=== PATIENT | female | born 1945 | race Caucasian/White ===

== ENCOUNTER → 2016-12-31 | Outpatient (CLI) | payer MEDICARE ==
--- NOTE | 2016-12-31 17:17 | BD ---
EXAMINATION TYPE: MG DEXA axial skeleton. DATE OF EXAM: 12/31/2016 COMPARISON: 2014 CLINICAL HISTORY: post menopausal Height: 5'2 Weight: 151 FRAX RISK QUESTIONS: Alcohol (3 or more units per day): no Family History (Parent hip fracture): no Glucocorticoids (More than 3mos): no (Ex: prednisone, prednisolone, methylprednisolone, dexamethasone, and hydrocortisone). History of Fracture in Adulthood: yes Secondary Osteoporosis: 1. Type 1 Diabetes: no 2. Hyperthyroidism: no 3. Menopause before 45: no 4. Malnutrition: no 5. Chronic liver disease: no Rheumatoid Arthritis: no Current Tobacco Use: no RISK FACTORS HISTORY OF: History of Wrist Fracture: rt When: age 66 Other Fractures since Age 52: When: age 66 Family History of Osteoporosis: Postmenopausal woman: MEDICATIONS: Additional Medications: blood pressure, vitamin d cholesterol, Additional History: EXAM MEASUREMENTS: Bone mineral densitometry was performed using the [employer]. Bone mineral density as measured about the Lumbar spine is: ----- L1-L4(G/cm2): 1.075 T Score Values are as follows: ----- L2: -0.4 ----- L3: -0.1 ----- L4: -1.7 ----- L1-L4: -0.9 Bone mineral density has: Increased 2.4% since study of: 01/25/2015 Bone mineral density about the R hip (g/cm2): 0.836 Bone mineral density about the L hip (g/cm2): 0.815 T Score values are as follows: -----R Neck: -1.5 -----L Neck: -1.6 -----R Total: -0.9 -----L Total: -0.9 Bone mineral density has: Increased 3.8% since study of: 01/25/2015 IMPRESSION: Osteopenia (T Score between -2.5 and -1 as noted by T score values:L4, sukhwinder hips There is slightly increased risk of fracture and the patient may be considered for treatment. Re-Screen 2-5 years. Bone density has improved 3.8% from 2015 within the bilateral hips. Bone density has improved 2.4% fr om 2015 within the lumbar spine. NOTE: T-SCORE=SD OF THE YOUNG ADULT MEAN.
--- NOTE | 2017-01-01 07:27 | WWHP ---
DATE OF SERVICE: 12/31/2016 CHIEF COMPLAINT: The patient is here for her routine gynecologic exam and mammogram. HPI: This is a 71-year-old, G3, P1-0-2-1 with an LMP of 1993. She is status post LEON/BSO in 1993 for endometriosis. The patient is without gynecologic complaints. PAST MEDICAL HISTORY: Chronic hypertension, seasonal allergies and osteopenia. MEDICATIONS: 1. Quinapril 20 mg daily. 2. Amlodipine 5 mg daily. 3. Citalopram 10 mg daily. 4. Atorvastatin 10 mg daily. 5. Vitamin D3, 2000 units daily. 6. Centrum Silver vitamin 1 daily. 7. Zyrtec 10 mg daily p.r.n. 8. Biotin daily. ALLERGIES: No known drug allergies. 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 SOCIAL HISTORY: She denies tobacco and drug use and has about 7 alcoholic drinks per week. She has been since 1975 and is retired. She often visits her son who is in [place]. REVIEW OF SYSTEMS: She has gained about 6 pounds over the last year. She denies respiratory, cardiac, or GI problems. She denies maltreatment or falling. : She has occasional small leakage if she laughs or coughs very hard. She denies urge incontinence. PHYSICAL EXAM: Blood pressure 131/74. Height 5 feet 3 inches. Weight 153 pounds. Temperature 98.1, pulse 83. This a well-developed, well-nourished white female who is alert and oriented x3 in no acute distress. HEENT is within normal limits. NECK: Supple without mass or thyromegaly. CHEST AND LUNGS: Clear to auscultation. HEART: Regular rate and rhythm. Breasts are without mass or discharge. Axillary exam is negative for adenopathy. BACK: Negative for CVA tenderness. ABDOMEN: Soft, nontender, without palpable masses. PELVIC EXAM: External genitalia reveals mild to moderate atrophy without lesions. Vagina reveals moderate atrophy without lesions. There is no evidence of prolapse. Bimanual exam does reveal a pelvic mass just at the apex of the vagina which feels about 4 to 5 cm in size and is somewhat firm and slightly irregular. My initial impression was this probably represented stool. There are no other masses or tenderness. Rectovaginal exam does confirm the pelvic mass and I could not palpate stool directly in the rectum to explain this pelvic mass. There are no rectal masses and this was negative for occult blood. EXTREMITIES: Nontender. IMPRESSION: 1. A 71-year-old menopausal female, status post total abdominal hysterectomy/bilateral salpingo-oophorectomy for benign reasons. 2. Palpable pelvic mass. Differential diagnosis will include colonic stool, ovarian remnant neoplasm as well as nongynecologic neoplasm. 3. History of osteopenia. The patient is status post numerous medications for weaker bone including Fosamax, Evista, Reclast and most recently Prolia. This was discontinued last year. PLAN: 1. Pap smears have been discontinued. 2. Self breast examination was discussed. 3. Mammogram will be done today. 4. Bone density testing will be done today. 5. Pelvic ultrasound will be scheduled to further evaluate the pelvic mass. I have also recommended that she use a stool softener, laxative such as Senokot for several days prior to the ultrasound. 6. Osteoporosis prevention was discussed. We will see if her bone density testing is stable. If there is significant weakening of the bones consider restarting medication. 7. She will return in one year.
--- NOTE | 2017-01-01 12:56 | MM ---
Reason for exam: screening (asymptomatic). Last mammogram was performed 1 year ago. History: Patient is postmenopausal and had first child at age 34. Family history of breast cancer in maternal cousin and breast cancer in paternal cousin. Benign excisional biopsy of the right breast, 1989. Physical Findings: A clinical breast exam by your physician is recommended on an annual basis and results should be correlated with mammographic findings. MG 3D Screening Mammo W/Cad Bilateral CC and MLO view(s) were taken. Prior study comparison: December 26, 2015, bilateral MG 3d screening mammo w/cad. May 27, 2014, mammogram, performed at [facility]. The breast tissue is heterogeneously dense. This may lower the sensitivity of mammography. No significant changes when compared with prior studies. ASSESSMENT: Benign, BI-RAD 2 RECOMMENDATION: Routine screening mammogram of both breasts in 1 year.
== END | disposition home or self-care (01) ==
LOC: WWCWWP 13:53
PROVIDERS: ATTEND Obstetrics & Gynecology
DX: Z12.31 Encounter for screening mammogram for malignant neoplasm of breast (principal); Z78.0 Asymptomatic menopausal state; M85.88 Other specified disorders of bone density and structure, other site
CPT/HCPCS: 77080; 77063; G0202

== ENCOUNTER → 2017-01-14 | Outpatient (CLI) | payer MEDICARE ==
--- NOTE | 2017-01-14 11:20 | US ---
EXAMINATION TYPE: US pelvic complete DATE OF EXAM: 01/14/2017 COMPARISON: Correlation CT 02/05/2015 CLINICAL HISTORY: 71-year-old female Pelvic Mass R19. felt possible mass during pelvic exam TECHNIQUE: Transabdominal (TA) scanning of the pelvis. Date of LMP: complete hysterectomy many years ago FINDINGS: Uterus: Surgically absent Right Ovary: Surgically absent Left Ovary: Surgically absent There are some bowel loops within both adnexa. No pelvic free fluid. IMPRESSION: Status post hysterectomy and bilateral salpingo-oophorectomy. No pelvic mass or free fluid seen by david rosa.
== END | disposition home or self-care (01) ==
LOC: RADUSWWP 10:21
PROVIDERS: ATTEND Obstetrics & Gynecology
DX: R19.00 Intra-abdominal and pelvic swelling, mass and lump, unspecified site (principal); Z90.710 Acquired absence of both cervix and uterus; Z90.722 Acquired absence of ovaries, bilateral
CPT/HCPCS: 76857

== ENCOUNTER → 2018-01-27 | Outpatient (CLI) | payer MEDICARE ==
[2018-01-27 14:21] VITALS: BP 152/81; PULSE 78; TEMP 98; BMI 26.9
--- NOTE | 2018-01-27 15:02 | P.HPOB ---
History of Present Illness H&P Date: 01/27/18 Chief Complaint: The patient is here for her routine gynecologic exam and mammogram. This is a 72 year old with an LMP of 1993. The patient is without gynecologic complaints. She is status post [facility] BSO in 1993 for endometriosis. Review of Systems She has lost 6 pounds over the last year. She denies respiratory, cardiac and G.I. problems. She denies maltreatment or problems with falling. : she denies any significant problems with urinary leakage. She does urinate about 3 times at night. Past Medical History Past Medical History: Hypertension Additional Past Medical History / Comment(s): Seasonal allergies and osteopenia. She used bisphosphonates for greater than 5 years. 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 History of Any Multi-Drug Resistant Organisms: None Reported Past Surgical History: Breast Surgery (Right biopsy benign), Hysterectomy ([facility] BSO in 1993) Additional Past Surgical History / Comment(s): Colonoscopy 2012(3rd). Past Psychological History: No Psychological Hx Reported Smoking Status: Never smoker Past Alcohol Use History: Daily (1 or 2 per day) Past Drug Use History: None Reported Additional History: She has been since 1975 and is retired. She has a son in [place]. - Past Family History Father Family Medical History: Myocardial Infarction ([place]) Additional Family Medical History / Comment(s): 2 cousins had breast cancer. Medications and Allergies Home Medications Medication Instructions Recorded Confirmed Type Atorvastatin [Lipitor] 10 mg PO DAILY 03/30/15 01/27/18 History Calcium Carbonate/Vitamin D3 1 each PO 03/30/15 03/30/15 History [Calcium 600 + Vit D Tablet] Cetirizine HCl [Zyrtec] 10 mg PO DAILY 03/30/15 01/27/18 History Citalopram Hydrobromide [CeleXA] 20 mg PO DAILY 03/30/15 01/27/18 History Multivitamin/Iron/Folic Acid 1 each PO 03/30/15 03/30/15 History [Centrum Complete Multivit Tab] Quinapril HCl [Accupril] 20 mg PO DAILY 03/30/15 01/27/18 History amLODIPine [Norvasc] 5 mg PO DAILY 03/30/15 01/27/18 History Cholecalciferol (Vitamin D3) cap PO BID 01/27/18 History [Vitamin D3] Allergies Allergy/AdvReac Type Severity Reaction Status Date / Time No Known Allergies Allergy Verified 03/30/15 13:42 Exam Vital Signs Temp Pulse BP 01/27/18 14:18 98.0 F 78 152/81 Intake and Output 01/26/18 01/27/18 01/27/18 22:59 06:59 14:59 Other: Weight 66.678 kg Height 5'2", BMI 26.9. This is a well-developed well-nourished white female who is alert and oriented times 3 in no acute distress. HEENT: Within normal limits. NECK: Supple without mass or thyromegaly. CHEST AND LUNGS: Clear to auscultation. HEART: Regular rate and rhythm. BREASTS: Are without mass or discharge. AXILLARY EXAM: Negative for adenopathy. In the right axilla is there is a benign appearing ingrown hair follicle with mild erythema measuring approximately 1 cm. BACK: Negative for CVA tenderness. ABDOMEN: Soft, nontender, without palpable masses. PELVIC EXAM: External genitalia appears normal with mild to moderate atrophy. Vagina appears normal with mild to moderate atrophy. There is no evidence of prolapse. Bimanual examination is negative for mass or tenderness. RECTAL EXAM: Rectovaginal exam is negative for mass or tenderness and is negative for occult blood. EXTREMITIES: Nontender. IMPRESSION: 1. 72-year-old menopausal female status post LEON BSO for benign reasons, with normal gynecologic exam. 2. History of osteopenia status post greater than 5 years use of bisphosphonates. PLAN: 1. Pap smears have been discontinued. 2. Self breast awareness was discussed. 3. The mammogram will be done today. 4. She does get flu shots in the fall. 5. Osteoporosis prevention was discussed. Will plan on repeating bone density testing in one or 2 years. 6. She will return in one year.
--- NOTE | 2018-01-29 11:55 | MM ---
Reason for exam: screening (asymptomatic). Last mammogram was performed 1 year and 1 month ago. History: Patient is postmenopausal and had first child at age 34. Family history of breast cancer in maternal cousin and breast cancer in paternal cousin. Benign excisional biopsy of the right breast, 1989. Physical Findings: A clinical breast exam by your physician is recommended on an annual basis and results should be correlated with mammographic findings. MG 3D Screening Mammo W/Cad Bilateral CC and MLO view(s) were taken. Prior study comparison: December 31, 2016, bilateral MG 3d screening mammo w/cad. December 26, 2015, bilateral MG 3d screening mammo w/cad. The breast tissue is heterogeneously dense. This may lower the sensitivity of mammography. No significant changes when compared with prior studies. ASSESSMENT: Negative, BI-RAD 1 RECOMMENDATION: Routine screening mammogram of both breasts in 1 year.
== END | disposition home or self-care (01) ==
LOC: WWCWWP 13:53
PROVIDERS: ATTEND Obstetrics & Gynecology
DX: Z12.31 Encounter for screening mammogram for malignant neoplasm of breast (principal)
CPT/HCPCS: 77063; 77067

== ENCOUNTER → 2019-02-02 | Outpatient (CLI) | payer MEDICARE ==
[2019-02-02 11:04] VITALS: BP 145/81; PULSE 66; RESP 18; TEMP 97.7; BMI 28.0
--- NOTE | 2019-02-02 11:42 | P.HPOB ---
History of Present Illness H&P Date: 02/02/19 Chief Complaint: The patient is here for her routine gynecologic exam and ma mmogram. This is a 73-year-old with an LMP of 1993. The patient is without gynecologic complaints. She is status post [facility] BSO for endometriosis in 1993. Review of Systems She is getting 6 pounds over the last year. She denies respiratory, cardiac and G.I. problems. She denies maltreatment. She has fallen about 3 times over the last year without injury. : she denies any significant problems with urinary leakage. She does get up a few times at night. Past Medical History Past Medical History: Hypertension Additional Past Medical History / Comment(s): Seasonal allergies and osteopenia. She used bisphosphonates for greater than 5 years. 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 History of Any Multi-Drug Resistant Organisms: None Reported Past Surgical History: Breast Surgery, Hysterectomy Additional Past Surgical History / Comment(s): Right breast biopsy was benign. [facility] BSO in 1993. Colonoscopy 2013(3rd). Past Psychological History: No Psychological Hx Reported Smoking Status: Never smoker Past Alcohol Use History: Daily (2 glasses of wine per day.) Past Drug Use History: None Reported Additional History: She has been since 1975 and is retired. She has a son in [place]. - Past Family History Father Family Medical History: Myocardial Infarction ([place]) Additional Family Medical History / Comment(s): 2 cousins had breast cancer. Medications and Allergies Home Medications Medication Instructions Recorded Confirmed Type Atorvastatin [Lipitor] 10 mg PO DAILY 03/30/15 02/02/19 History Calcium Carbonate/Vitamin D3 1 each PO DAILY 03/30/15 02/02/19 History [Calcium 600 + Vit D Tablet] Cetirizine HCl [Zyrtec] 10 mg PO DAILY 03/30/15 02/02/19 History Citalopram Hydrobromide [CeleXA] 20 mg PO DAILY 03/30/15 02/02/19 History Multivitamin/Iron/Folic Acid 1 each PO DAILY 03/30/15 02/02/19 History [Centrum Complete Multivit Tab] Quinapril HCl [Accupril] 20 mg PO DAILY 03/30/15 02/02/19 History amLODIPine [Norvasc] 5 mg PO DAILY 03/30/15 02/02/19 History Cholecalciferol (Vitamin D3) 1 cap PO BID 01/27/18 02/02/19 History [Vitamin D3] Allergies Allergy/AdvReac Type Severity Reaction Status Date / Time No Known Allergies Allergy Verified 02/02/19 11:04 Exam Vital Signs Temp Pulse Resp BP Pulse Ox 02/02/19 10:55 97.7 F 66 18 145/81 96 Intake and Output 02/01/19 02/02/19 02/02/19 22:59 06:59 14:59 Other: Weight 69.4 kg Height 5'2", weight 153 pounds, BMI 28.0. This is a well-developed well-nourished white female who is alert and oriented times 3 in no acute distress. HEENT: Within normal limits. NECK: Supple without mass or thyromegaly. CHEST AND LUNGS: Clear to auscultation. HEART: Regular rate and rhythm. BREASTS: Are without mass or discharge. AXILLARY EXAM: Negative for adenopathy. BACK: Negative for CVA tenderness. ABDOMEN: Soft, nontender, without palpable masses. PELVIC EXAM: External genitalia appears normal with mild to moderate atrophy. Vagina appears normal with mild to moderate atrophy. There is no evidence of prolapse. Bimanual examination is negative for mass or tenderness. RECTAL EXAM: Rectovaginal exam is negative for mass or tenderness and is negative for occult blood. EXTREMITIES: Nontender. IMPRESSION: 1. 73-year-old menopausal female status post LEON BSO for benign reasons with normal gynecologic exam. 2. History of osteopenia status post greater than 5 years use of bisphosphonates PLAN: 1. Pap smears have been discontinued. 2. Self breast awareness was discussed with the patient. Screening mammogram will be done today. 3. Osteoporosis prevention was discussed. I have stressed the importance of adequate calcium, vitamin D and regular exercise. Recommended amounts of calcium and vitamin D were also discussed. Bone density test will be done today. 4. She will return in one to 2 years for her well woman exam.
--- NOTE | 2019-02-02 19:01 | BD ---
EXAMINATION TYPE: Axial Bone Density DATE OF EXAM: 02/02/2019 COMPARISON: 12/31/2016 CLINICAL HISTORY: Postmenopausal without hormonal replacement therapy Height: 62 IN Weight: 150 LBS FRAX RISK QUESTIONS: History of Fracture in Adulthood: YES RT WRIST AGE 66 RISK FACTORS HISTORY OF: History of Wrist Fracture: YES RT When: AGE 66 Family History of Osteoporosis: YES MOTHER Active: YES Postmenopausal woman: YES AGE 49 TOTAL HYST MEDICATIONS: Osteoporosis Medications: NOT ON ANY FOR LAST 2 YEARS Which medication: Fosamax PROLIA INJECTIONS How Long: PT TOOK FOR 20 YEARS. MANY DIFFERENT MEDS Additional Medications: VIT D3, CALCIUM, CELEXA, BLOOD PRESSURE MED, CHOLESTEROL MEDS EXAM MEASUREMENTS: Bone mineral densitometry was performed using the [employer]. Bone mineral density as measured about the Lumbar spine is: ----- L1-L4(G/cm2): 1.071 T Score Values are as follows: ----- L2: -0.9 ----- L3: -0.1 ----- L4: -1.4 ----- L1-L4: -0.9 Bone mineral density has: Decreased -0.5% since study of: 12/31/2016 Bone mineral density about the R hip (g/cm2): 0.806 Bone mineral density about the L hip (g/cm2): 0.902 T Score values are as follows: -----R Neck: -1.7 -----L Neck: -1.0 -----R Total: -1.1 -----L Total: -1.1 Bone mineral density has: Decreased -2.7% since study of: 12/31/2016 IMPRESSION: Osteopenia (T Score between -2.5 and -1). There is slightly increased risk of fracture and the patient may be considered for treatment. Re-Screen 2-5 years. NOTE: T-SCORE=SD OF THE YOUNG ADULT MEAN.
--- NOTE | 2019-02-04 11:54 | MM ---
Reason for exam: screening (asymptomatic). Last mammogram was performed 1 year ago. History: Patient is postmenopausal and had first child at age 34. Family history of breast cancer in maternal cousin and breast cancer in paternal cousin. Benign excisional biopsy of the right breast, 1989. Physical Findings: A clinical breast exam by your physician is recommended on an annual basis and results should be correlated with mammographic findings. MG 3D Screening Mammo W/Cad Bilateral CC and MLO view(s) were taken. Prior study comparison: January 27, 2018, bilateral MG 3d screening mammo w/cad. December 31, 2016, bilateral MG 3d screening mammo w/cad. The breast tissue is heterogeneously dense. This may lower the sensitivity of mammography. No significant changes when compared with prior studies. ASSESSMENT: Benign, BI-RAD 2 RECOMMENDATION: Routine screening mammogram of both breasts in 1 year.
--- NOTE | 2019-02-10 10:45 | P.PN ---
Progress Note - Text Progress Note Date: 02/10/19 OUTPATIENT FOLLOW-UP NOTE TEST(S)/RESULTS: bone density testing on 02/02/2019 showed osteopenia with minimal change from her 2017 testing. Mammogram was benign. METHOD OF NOTIFICATION: the patient was notified by phone. PATIENT COMMENTS: the patient states she has been announced several medications for osteoporosis or osteopenia years ago including greater than 5 years use of bisphosphonates. DIAGNOSIS: osteopenia with history of greater than 5 years use of bisphosphonates. Benign mammogram. DISCUSSION: I have stressed the importance of getting adequate calcium, vitamin D and regular exercise. We will plan on repeating bone density testing in 2 to 3 years. PLAN: The patient was advised to return in 1-2 years for her well woman examination.
== END | disposition home or self-care (01) ==
LOC: WWCWWP 10:39
PROVIDERS: ATTEND Obstetrics & Gynecology
DX: Z12.31 Encounter for screening mammogram for malignant neoplasm of breast (principal); M85.88 Other specified disorders of bone density and structure, other site; Z78.0 Asymptomatic menopausal state
CPT/HCPCS: 77063; 77067; 77080

== ENCOUNTER → 2020-02-23 | Outpatient (CLI) | payer MEDICARE ==
[2020-02-23 09:40] VITALS: BP 129/78; PULSE 77; RESP 18; TEMP 98.5
--- NOTE | 2020-02-23 10:21 | P.HPOB ---
History of Present Illness H&P Date: 02/23/20 Chief Complaint: The patient is here for her routine gynecologic exam. This is a 74-year-old 0-1 with an LMP of 1993. She is status post LEON/BSO for endometriosis. The patient is without gynecologic complaints. Review of Systems Weight has been stable. She denies respiratory, cardiac and G.I. problems. She denies maltreatment or problems with falling. : she denies any significant problems with urinary leakage. Past Medical History Past Medical History: Hypertension Additional Past Medical History / Comment(s): Seasonal allergies and osteopenia. She used bisphosphonates for greater than 5 years. 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 History of Any Multi-Drug Resistant Organisms: None Reported Past Surgical History: Breast Surgery, Hysterectomy Additional Past Surgical History / Comment(s): Right breast biopsy was benign. LEON BSO in 1993. Colonoscopy 2012(3rd, next after 10yr). Past Psychological History: No Psychological Hx Reported Smoking Status: Never smoker Past Alcohol Use History: Daily (2 glasses of wine per day) Past Drug Use History: None Reported Additional History: She has been since 1975 and is retired. She spends much of the winter in [place] where her son lives. - Past Family History Father Family Medical History: Myocardial Infarction ([place]) Additional Family Medical History / Comment(s): 2 cousins had breast cancer. Mother Additional Family Medical History / Comment(s): Osteoporosis. Medications and Allergies Home Medications Medication Instructions Recorded Confirmed Type Atorvastatin [Lipitor] 10 mg PO 03/30/15 02/23/20 History Cetirizine HCl [Zyrtec] 10 mg PO 03/30/15 02/23/20 History Citalopram Hydrobromide [CeleXA] 20 mg PO [facility] 03/30/15 02/23/20 History Quinapril HCl [Accupril] 20 mg PO QA 03/30/15 02/23/20 History amLODIPine [Norvasc] 5 mg PO HS 03/30/15 02/23/20 History Cholecalciferol (Vitamin D3) 1 cap PO QAM 01/27/18 02/23/20 History [Vitamin D3] Calcium Carb/Vitamin D3/Vit K1 1 tab PO QAM 02/23/20 02/23/20 History [Viactiv 650 mg-12.5 Mcg Chew] Prevagen 1 tab PO QAM 02/23/20 02/23/20 History Allergies Allergy/AdvReac Type Severity Reaction Status Date / Time No Known Allergies Allergy Verified 02/23/20 09:31 Exam Vital Signs Temp Pulse Resp BP Pulse Ox 02/23/20 09:38 98.5 F 77 18 129/78 96 Intake and Output 02/22/20 02/23/20 02/23/20 22:59 06:59 14:59 Other: Weight 69.4 kg Height 5 feet 2 inches, weight 153 pounds, BMI 28.0. This is a well-developed well-nourished white female who is alert and oriented times 3 in no acute distress. HEENT: Within normal limits. NECK: Supple without mass or thyromegaly. CHEST AND LUNGS: Clear to auscultation. HEART: Regular rate and rhythm. BREASTS: Are without mass or discharge. AXILLARY EXAM: Negative for adenopathy. BACK: Negative for CVA tenderness. ABDOMEN: Soft, nontender, without palpable masses. PELVIC EXAM: External genitalia appears normal with mild to moderate atrophy. Vagina appears normal with moderate atrophy. There is no evidence of prolapse. Bimanual examination is negative for mass or tenderness. RECTAL EXAM: Rectovaginal exam is negative for mass or tenderness and is negative for occult blood. EXTREMITIES: Nontender. IMPRESSION: 1. 74-year-old menopausal female status post LEON/BSO for benign reasons with normal gynecologic exam. 2. History of osteopenia status post greater than 5 years use of bisphosphonates. PLAN: 1. Pap smears have been discontinued. 2. Self breast awareness was discussed with the patient. 3. Screening mammogram is scheduled for 04/20/2020 and the order slip was given to the patient for this. 4. Osteoporosis prevention was discussed. I have stressed the importance of adequate calcium, vitamin D and regular exercise. Recommended amounts of calcium and vitamin D were also discussed. Her last bone density test done on 02/02/2019 showed slight improvement from the previous one. I recommended that she repeat this again in 2021. 5. She does get flu shots in the fall. 6. The patient was advised to return in 1-2 years for her well woman ex amination.
== END | disposition home or self-care (01) ==
LOC: WWCWWP 09:24
PROVIDERS: ATTEND Obstetrics & Gynecology
DX: Z53.9 Procedure and treatment not carried out, unspecified reason (principal)

== ENCOUNTER → 2020-04-20 | Outpatient (CLI) | payer MEDICARE ==
--- NOTE | 2020-04-21 11:27 | MM ---
Reason for exam: screening (asymptomatic). Last mammogram was performed 1 year and 3 months ago. History: Patient is postmenopausal and had first child at age 34. Family history of breast cancer in maternal cousin and breast cancer in paternal cousin. Benign excisional biopsy of the right breast, 1989. Physical Findings: A clinical breast exam by your physician is recommended on an annual basis and results should be correlated with mammographic findings. MG 3D Screening Mammo W/Cad Bilateral CC and MLO view(s) were taken. Prior study comparison: February 02, 2019, bilateral MG 3d screening mammo w/cad. January 27, 2018, bilateral MG 3d screening mammo w/cad. The breast tissue is heterogeneously dense. This may lower the sensitivity of mammography. Stable benign calcifications. There is no discrete abnormality. No significant changes when compared with prior studies. ASSESSMENT: Benign, BI-RAD 2 RECOMMENDATION: Routine screening mammogram of both breasts in 1 year.
== END | disposition home or self-care (01) ==
LOC: RADMAMWWP 11:01
PROVIDERS: ATTEND Obstetrics & Gynecology
DX: Z12.31 Encounter for screening mammogram for malignant neoplasm of breast (principal)
CPT/HCPCS: 77063; 77067

== ENCOUNTER → 2022-02-12 | Outpatient (CLI) | payer MEDICARE ==
--- NOTE | 2022-02-13 18:03 | MM ---
Reason for Exam: Screening (asymptomatic). Last mammogram was performed 1 year(s) and 9 month(s) ago. Patient History: Menarche at age 14. First Full-Term at age 34. Late child-bearing (after 30). Left ovary removed at age 49. Right ovary removed at age 49. Hysterectomy at age 49. Postmenopausal. 1989, Benign Excisional Biopsy on the right side. Paternal cousin had breast cancer. Maternal cousin had breast cancer. Risk Values: Jessie 5 year model risk: 2.9%. NCI Lifetime model risk: 6.6%. Prior Study Comparison: 01/27/2018 Bilateral Screening Mammogram, [facility]. 02/02/2019 Bilateral Screening Mammogram, [facility]. 04/20/2020 Bilateral Screening Mammogram, [facility]. Tissue Density: The breast tissue is heterogeneously dense. This may lower the sensitivity of mammography. Findings: Analyzed By CAD. There is no suspicious group of microcalcifications or new suspicious mass in either breast. Stable benign calcifications. No significant change from prior examinations. Overall Assessment: Benign, BI-RAD 2 Management: Screening Mammogram of both breasts in 1 year. A clinical breast exam by your physician is recommended on an annual basis and results should be correlated with mammographic findings. Electronically signed and approved by: Ced Newman D.O.
--- NOTE | 2022-02-18 09:14 | BD ---
EXAMINATION TYPE: Axial Bone Density DATE OF EXAM: 02/12/2022 COMPARISON: 12/31/2016 CLINICAL HISTORY: 76 years year old Female. ICD-10 CODE: M81.0 KNOWN OSTEOPOROSIS Height: 61.5 IN Weight: 151 LBS FRAX RISK QUESTIONS: History of Fracture in Adulthood: RT WRIST AGE 60 RISK FACTORS HISTORY OF: History of Wrist Fracture: RT WRIST AGE 60 Family History of Osteoporosis: YES MOTHER Active: YES Diet low in dairy products/other sources of calcium: YES Postmenopausal woman: TOTAL HYST AGE 49 MEDICATIONS: Osteoporosis Medications: NOT NOW Which medication: Fosamax PROLIA How Lon+ YEARS Additional Medications: VIT D, CELEXA, QUINIPRAL, ATORVASTATIN, AMLODIPINE, EXAM MEASUREMENTS: Bone mineral densitometry was performed using the [employer] System. Bone mineral density as measured about the Lumbar spine is: ----- L1-L4(G/cm2): 1.049 T Score Values are as follows: ----- L1: -1.1 ----- L2: -0.8 ----- L3: -0.3 ----- L4: -2.1 ----- L1-L4: -1.1 Bone mineral density has: Decreased -3.5% since study of: 12/31/2016 Bone mineral density about the R hip (g/cm2): 0.799 Bone mineral density about the L hip (g/cm2): 0.810 T Score values are as follows: -----R Neck: -1.7 -----L Neck: -1.6 -----R Total: -1.2 -----L Total: -1.3 Bone mineral density has: Decreased -4.9% since study of: 12/31/2016 FRAX%s: The graph provided illustrates a 17.9 chance for a major osteoporotic fx and a 3.8 chance for the hips probability for fx in 10 years time. IMPRESSION: Osteopenia (T Score between -2.5 and -1). There is slightly increased risk of fracture and the patient may be considered for treatment. Re-Screen 2-5 years. NOTE: T-SCORE=SD OF THE YOUNG ADULT MEAN.
== END | disposition home or self-care (01) ==
LOC: RADMAMWWP 15:01
PROVIDERS: ATTEND Family Medicine
DX: Z12.31 Encounter for screening mammogram for malignant neoplasm of breast (principal); Z78.0 Asymptomatic menopausal state; M85.88 Other specified disorders of bone density and structure, other site; Z80.3 Family history of malignant neoplasm of breast
CPT/HCPCS: 77063; 77067; 77080

== ENCOUNTER → 2023-05-15 | Outpatient (CLI) | payer MEDICARE ==
[2023-05-15 18:07] LABS: African American GFR (CKD) >90 (>60 ml/min/1.73 sqM); Blood Urea Nitrogen 17 mg/dL (7-17); Non-African American GFR(CKD) >90 (>60 ml/min/1.73 sqM)
--- NOTE | 2023-05-16 10:08 | CT ---
EXAMINATION TYPE: CT brain wo/w con CT DLP: 2024.40 mGycm, Automated exposure control for dose reduction was used. DATE OF EXAM: 05/15/2023 6:32 PM COMPARISON: None CLINICAL INDICATION:Female, 78 years old with history of R42 DIZZINESS AND GIDDINESS; PHH, DIZZINESS AND GIDDINESS TECHNIQUE: Axial CT images of the brain were obtained with coronal and sagittal reformats created and reviewed. Contrast used:65ml mL of Isovue 370 without and with IV Contrast, Oral contrast used: none. FINDINGS: Extra-axial spaces: No abnormal extra-axial fluid collections. Ventricular system: Within normal limits Cerebral parenchyma: No acute intraparenchymal hemorrhage or mass effect. The villeda-white junction is well differentiated. No abnormal enhancement is seen after the administration of intravenous contras t. Cerebellum: Unremarkable. Mass effect: No evidence of midline shift. Intracranial vasculature: No evidence for high-grade stenosis, vascular occlusion or aneurysmal dilat ion. Hypoplastic right A1 segment noted. Sclerosis of the carotid siphons bilaterally. Soft tissues: Normal. Calvarium/osseous structures: No depressed skull fracture. Paranasal sinuses and mastoid air cells: Clear. Visualized orbits: Orbital contents are intact. IMPRESSION: No acute intracranial process and no evidence to suggest intracranial mass.
== END | disposition home or self-care (01) ==
LOC: RADCTMAIN 17:03
PROVIDERS: ATTEND Family Medicine
DX: R42 Dizziness and giddiness (principal)
CPT/HCPCS: 82565; 84520; 70470; 36415; Q9967

== ENCOUNTER → 2024-03-10 | Outpatient (CLI) | payer MEDICARE ==
--- NOTE | 2024-03-29 18:09 | MM ---
Reason for Exam: Screening (asymptomatic). Last mammogram was performed 2 year(s) and 1 month(s) ago. Patient History: Menarche at age 14. First Full-Term at age 37. Late child-bearing (after 30). Left ovary removed at age 49. Right ovary removed at age 49. Hysterectomy at age 49. Postmenopausal. 1989, Benign Excisional Biopsy on the right side. Paternal cousin had breast cancer. Maternal cousin had breast cancer. Risk Values: Jessie 5 year model risk: 2.8%. NCI Lifetime model risk: 5.4%. Prior Study Comparison: 12/26/2015 Bilateral Screening Mammogram, [facility]. 12/31/2016 Bilateral Screening Mammogram, [facility]. 01/27/2018 Bilateral Screening Mammogram, [facility]. 02/02/2019 Bilateral Screening Mammogram, [facility]. 04/20/2020 Bilateral Screening Mammogram, [facility]. 02/12/2022 Bilateral MG 3D screening mammo w/cad, [facility]. Tissue Density: The breasts are heterogeneously dense, which may obscure small masses. Findings: Analyzed By CAD. A few benign bilateral oil cyst calcifications. Benign vascular calcifications on the left. Mole redemonstrated near the left axillary tail. There is no suspicious group of microcalcifications or new suspicious mass in either breast. Overall Assessment: Benign, BI-RAD 2 Management: Screening Mammogram of both breasts in 1 year. . Patient should continue monthly self-breast exams. A clinical breast exam by your physician is recommended on an annual basis. This exam should not preclude additional follow-up of suspicious palpable abnormalities. Note on Jessie scores and lifetime risk: 1. A Jessie score greater than 3% is considered moderate risk. If this is the case, consider specialist referral to assess eligibility for a risk reducing agent. 2. If overall lifetime risk for the development of breast cancer is 20% or higher, the patient may qualify for future screening with alternating mammogram and breast MRI. Electronically signed and approved by: Elle Harrell M.D. Radiologist
== END | disposition home or self-care (01) ==
LOC: RADMAMWWP 18:19
PROVIDERS: ATTEND Family Medicine
DX: Z12.31 Encounter for screening mammogram for malignant neoplasm of breast (principal); Z78.0 Asymptomatic menopausal state; Z80.3 Family history of malignant neoplasm of breast; Z90.721 Acquired absence of ovaries, unilateral
CPT/HCPCS: 77063; 77067

== ENCOUNTER → 2024-04-13 | Outpatient (CLI) | payer MEDICARE ==
--- NOTE | 2024-04-16 19:18 | BD ---
EXAMINATION TYPE: Axial Bone Density DATE OF EXAM: 04/13/2024 CLINICAL HISTORY: 79 years old Female. ICD-10 CODE: M85.88 DISORDER OF BONE Height: 61.75 Weight: 150 FRAX RISK QUESTIONS: Family History (Parent hip fracture): no History of Fracture in Adulthood: yes rt arm Secondary Osteoporosis: no RISK FACTORS HISTORY OF: Surgery to Spine/Hip(right/left)/Wrist (right/left): no MEDICATIONS: Thyroid Medications: no Osteoporosis Medications: no EXAM MEASUREMENTS: Bone mineral densitometry was performed using the [employer] System. Bone mineral density as measured about the Lumbar spine is: ----- L1-L4(G/cm2): 1.099 T Score Values are as follows: ----- L1: -0.8 ----- L2: -0.6 ----- L3: 0.1 ----- L4: -1.4 ----- L1-L4: -0.7 Z Score Values are as follows: ----- L1: 0.9 ----- L2: 1.0 ----- L3: 1.8 ----- L4: 0.3 ----- L1-L4: 1.0 Bone mineral density has: Increased 4.6% since study of: 02/12/2022 Bone mineral density about the R hip (g/cm2): 0.830 Bone mineral density about the L hip (g/cm2): 0.878 T Score values are as follows: -----R Neck: -2.2 -----L Neck: -1.8 -----R Total: -1.4 -----L Total: -1.0 Z Score values are as follows: -----R Neck: -0.2 -----L Neck: 0.1 -----R Total: 0.4 -----L Total: 0.7 Bone mineral density has: Increased 0.7% since study of: 02/12/2022 FRAX%s: The graph provided illustrates a 22.4% chance for a major osteoporotic fx and a 6.1% chance f or the hips probability for fx in 10 years time. IMPRESSION: Osteopenia (T Score between -2.5 and -1). There is slightly increased risk of fracture and the patient may be considered for treatment. Re-Screen 2-5 years. NOTE: T-SCORE=SD OF THE YOUNG ADULT MEAN. [facility], , 04/16/2024 7:16 PM
== END | disposition home or self-care (01) ==
LOC: RADBDWWP 12:49
PROVIDERS: ATTEND Family Medicine
DX: M85.88 Other specified disorders of bone density and structure, other site
CPT/HCPCS: 77080